=== PATIENT | female | born 1960 ===

== ENCOUNTER 2017-03-07 12:38 | Emergency (ER) | payer OTHER ==
[2017-03-07 12:52] VITALS: PULSE 83; TEMP 98.1
--- NOTE | 2017-03-07 13:21 | C.PDOC ---
History Of Present Illness 56 yr old female presents to the ER with complaints of reoccurring right hip pain for the past 1 month. Patient has multiple prior visits for the same complaints, current pain is similar to prior pain. Patient states she has received percocet before for the pain. Patient states she doesn't have a PMD due to lack of insurance. Patient states the right hip pain has been radiating to lateral right leg intermittently. Patient states the pain is worse when sitting. Patient denies abdominal pain, constipation, dysuria, incontinence, weakness or numbness. RECUR R HIP PAIN X 1 MONTH. MULT PRIOR ER VISITS FOR SAME, CURRENT PAIN SIM TO PRIOR. RECEIVED PERCOCET BEFORE FOR SAME. NO PMD DUE TO LACK OF INSURANCE. R HIP RADIATION LAT R LEG. INTERMI. WORSE W SITTING. NO ASSOC WEAK. EXAM MILD DIST NONTOXIC BACK LIMITED ROM DUE TO PAIN NEURO INTACT REPRODUC PAIN W ROM R HIP. MDM ADVISED NEED FOR PMD EVAL FOR CHRONIC PAIN MGMT. PT DRIVING HOME, WILL GIVE PERCOCET RX Time Seen by Provider: 03/07/17 13:03 Chief Complaint (Nursing): Hip Pain History Per: Patient History/Exam Limitations: no limitations Onset/Duration Of Symptoms: Persistent (1 month) Current Symptoms Are (Timing): Still Present Past Medical History Reviewed: Historical Data, Nursing Documentation, Vital Signs Vital Signs: Last Vital Signs Temp 98.1 F 03/07/17 12:50 Pulse 83 03/07/17 12:50 Resp 18 03/07/17 12:50 BP 123/85 03/07/17 12:50 Pulse Ox 97 03/07/17 13:26 - Medical History PMH: Gastritis, HTN, Hyperlipidemia, Hypothyroidism Family History: States: No Known Family Hx - Social History Hx Tobacco Use: No Hx Alcohol Use: No Hx Substance Use: No - Immunization History Hx Tetanus Toxoid Vaccination: Yes Hx Influenza Vaccination: Yes Hx Pneumococcal Vaccination: No Review Of Systems Except As Marked, All Systems Reviewed And Found Negative. Gastrointestinal: Negative for: Abdominal Pain, Constipation Genitourinary: Negative for: Dysuria, Incontinence Musculoskeletal: Positive for: Leg Pain (Raditaing pain to lateral right leg. ) , Other ((+) Right hip pain ) Neurological: Negative for: Weakness, Numbness Physical Exam - Physical Exam Appears: Well, Non-toxic, In Acute Distress (Mild) Skin: Warm, Dry, No Rash Head: Atraumatic, Normacephalic Oral Mucosa: Moist Neck: Normal, Normal ROM, Supple Chest: Symmetrical, No Tenderness Cardiovascular: Rhythm Regular, No Murmur Respiratory: Normal Breath Sounds, No Rales, No Rhonchi, No Wheezing Back: Other ((+) Limited ROM due to pain. ) Extremity: Normal ROM, No Tenderness, No Calf Tenderness, Capillary Refill (<2) , No Swelling Neurological/Psych: Oriented x3, Normal Speech, Normal Motor, Normal Sensation, Normal Reflexes Gait: Steady ED Course And Treatment O2 Sat by Pulse Oximetry: 97 Progress - Re-Evaluation Re-evaluation Note: 03/07/17 13:23 NO PRIOR NARCOTIC RX PER [facility] - Data Reviewed Data Reviewed: Other ([facility]) Medical Decision Making Medical Decision Making: PLAN: * Flexeril PO * Tylenol PO * Lidoderm TD NOTE: Advised the need for a PMD evaluation for chronic pain management. Patient is driving home and will give percocet prescription. Disposition Counseled Patient/Family Regarding: Diagnosis, Need For Followup, Rx Given - Disposition Referrals: [facility] [Outside] [facility] [Outside] Disposition: HOME/ ROUTINE Disposition Time: 13:24 Condition: GOOD Prescriptions: oxyCODONE/Acetaminophen [Percocet 5/325 mg Tab] 1 ea PO Q6 PRN #8 tab PRN Reason: Pain, Moderate (4-7) Instructions: Sciatica (ED) Forms: Work Excuse Print Language: KAZAKH - Clinical Impression Clinical Impression: Sciatica - Scribe Statement The provider has reviewed the documentation as recorded by the Pam Mcghee Provider Attestation: All medical record entries made by the Pam were at my direction and personally dictated by me. I have reviewed the chart and agree that the record accurately reflects my personal performance of the history, physical exam, medical decision making, and the department course for this patient. I have also personally directed, reviewed, and agree with the discharge instructions and disposition.
[2017-03-07] MEDS ORDERED: Lidocaine 5% Patch TD STA (13:25)
[2017-03-07] MEDS ORDERED: Lidocaine 5% Patch TD ONE (13:34)
[2017-03-07 14:07] VITALS: BP 139/85; RESP 16; O2SAT 98
== END 2017-03-07 14:06 | disposition home or self-care (01) ==
LOC: C.ER 12:38
DX: M54.31 Sciatica, right side (principal)